=== PATIENT | female | born 1975 | race Asian ===

== ENCOUNTER 2018-01-23 09:27 | Day surgery (SDC) | payer OTHER ==
[2018-01-23] VITALS (11 sets, daily range): BP systolic 118–134; BP diastolic 58–83
[~2018-01-23] VITALS: Ht 157.5 cm; Wt 92.5 kg
[~2018-01-23 09:27] MED LIST: Clindamycin 600mg 50 ML IV ONE; celeBREX 200mg Cap **SURGERY PATIENTS ONLY ORAL ONE; oxyCONTIN 20mg tab ORAL ONE
--- NOTE | 2018-01-23 10:07 | Anethesia Preoperative Eval ---
Anesthesia Pre-op PMH/ROS General Date of Evaluation: January 23, 2018 Anesthesiologist: Mikey ASA Score: ASA 2 Mallampati Score Class I : Soft palate, uvula, fauces, pillars visible Class II: Soft palate, uvula, fauces visible Class III: Soft palate, base of uvula visible Class IV: Only hard plate visible Mallampati Classification: Class II Surgeon: Kodi Diagnosis: Right shouler pain Surgical Procedure: Right shoulder arthroscopy with subacromial decompression Anesthesia History: none Family History: no anesthesia problems Allergies: Coded Allergies: OXACILLIN (Verified Allergy, Severe, 01/23/18) skin rash PENICILLINS (Verified Allergy, Severe, 01/23/18) SKIN RASH Medications: see eMAR Past Medical History Cardiovascular: Denies: HTN, CAD, DE, valve dz, arrhythmia, other Pulmonary: Reports: asthma; Denies: COPD, JEANNA, other Gastrointestinal/Genitourinary: Denies: GERD, CRI, ESRD, other Neurologic/Psychiatric: Reports: other - migraines; Denies: dementia, CVA, depression/anxiety, TIA Endocrine: Denies: DM, hypothyroidism, steroids, other HEENT: Denies: cataract (L), cataract (R), glaucoma, [place] (L), [place] (R), other Hematology/Immune: Reports: anemia - chronic; Denies: DVT, bleeding disorder, other Musculoskeletal/Integumentary: Denies: OA, RA, DJD, DDD, edema, other Other: other - overweight PSxH Narrative: left breast sx, D&C, right ankle sx Anesthesia Pre-op Phys. Exam Physician Exam see chart Constitutional: NAD Cardiovascular: RRR Respiratory: CTA Airway Exam Mallampati Score: Class II MO: full ROM: full Teeth: intact Anesthesia Pre-op A/P Labs see chart Studies Pre-op Studies: EKG - sr Risk Assessment & Plan Assessment: ASA II Plan: GA, right interscalene nerve block Status Change Before Surgery: No Pre-Antibiotics Drug: Clindamycin 600mg Given Within 1 Hr of Incision: DELFINO Norris M.D. January 23, 2018 10:07
[2018-01-23] MEDS ORDERED: METHOCARBAMOL500 MG ORAL (10:09)
[2018-01-23] MEDS ORDERED: IBUPROFEN600 MG ORAL (10:09)
[2018-01-23] MEDS ORDERED: oxyCONTIN 20mg tab ORAL SCH (10:45)
[2018-01-23] MEDS ORDERED: celeBREX 200mg Cap **SURGERY PATIENTS ONLY ORAL SCH (10:45)
[2018-01-23] MEDS ORDERED: Clindamycin 600mg 50 ML IV ONE (10:52)
[2018-01-23] MEDS ORDERED: Zemuron 50mg/5ml Inj IV ONE (10:53)
[2018-01-23] MEDS ORDERED: Lidocaine 1% MPF 10mg/ml 5ml ONE (11:15)
[2018-01-23] MEDS ORDERED: fentaNYL 100 mcg/2 mL IV ONE (11:15)
[2018-01-23] MEDS ORDERED: Midazolam 2mg/2ml Inj ONE (11:15)
[2018-01-23] MEDS ORDERED: Propofol 200mg/20ml IV ONE (11:15)
[2018-01-23] MEDS ORDERED: Ropivacaine 5mg/ml Vial 30ml INJ ONE (11:18)
[2018-01-23] MEDS ORDERED: LR 1000ml 1,000 ML IVLG SCH (11:26)
--- NOTE | 2018-01-23 11:28 | Immediate Post-Op Evaluation ---
Immediate Post-Op Evalulation Immediate Post-Op Evalulation Procedure: Right shoulder arthroscopy, with subacromial decompression Date of Evaluation: January 23, 2018 Time of Evaluation: 13:23 IV Fluids: 600 Blood Products: 0 Estimated Blood Loss: min Urinary Output: 0 Blood Pressure Systolic: 124 Blood Pressure Diastolic: 58 Pulse Rate: 71 Respiratory Rate: 16 O2 Sat by Pulse Oximetry: 98 Temperature (Fahrenheit): 97.8 Pain Score (1-10): 0 Nausea: No Vomiting: No Complications 0 Patient Status: awake, reacts, patent, none Hydration Status: adequate Drug: Clindamycin 600mg Given Within 1 Hr of Incision: Yes Time Given: 12:00 DELFINO NEFF M.D. January 23, 2018 11:28
[2018-01-23] MEDS ORDERED: Midazolam 2mg/2ml Inj IVP PRN (11:30)
[2018-01-23] MEDS ORDERED: Ketorolac 30mg Inj IV PRN (11:30)
[2018-01-23] MEDS ORDERED: LORazepam Inj 2mg/ml 1ml IV PRN (11:30)
[2018-01-23] MEDS ORDERED: DiphenhydrAMINE 50mg/ml Inj IVP PRN (11:30)
[2018-01-23] MEDS ORDERED: fentaNYL 100 mcg/2 mL IV PRN (11:30)
[2018-01-23] MEDS ORDERED: Bupivacaine 0.25% Inj 30ml INJ ONE (11:33)
[2018-01-23] MEDS ORDERED: EPINEPHrine 1mg/1ml Amp ONE (11:33)
[2018-01-23] MEDS ORDERED: Lidocaine 1% 10mg/ml/Epi 0.005mg/ml 30ml vial INJ ONE (11:33)
[2018-01-23] MEDS ORDERED: NS Irrig 4000ml IRRIG ONE (11:40)
--- NOTE | 2018-01-23 12:01 | 48 Hour Post Anesthesia Eval ---
Post Anesthesia Evaluation Procedure: Right shoulder arthroscopy, with subacromial decompression Date of Evaluation: January 23, 2018 Airway: patent Nausea: No Vomiting: No Pain Intensity: 0 Hydration Status: adequate Cardiopulmonary Status: at baseline Mental Status/LOC: patient returned to baseline Post-Anesthesia Complications: 0 Follow-up care needed: ready to discharge DELFINO NEFF M.D. January 23, 2018 12:01
--- NOTE | 2018-01-23 12:05 | Operative Note - PDOC ---
Operative Note Operative Note Pre-op Diagnosis: right shoulder impingement Procedure: see op report Post-op Diagnosis: same as pre-op plus Operative Findings: consistent w/pre-op dx studies Anesthesia: regional Specimen: none Complications: none Condition: stable Estimated Blood Loss: none Implant(s) used?: No Wilber Mariee MD January 23, 2018 12:05
--- NOTE | 2018-01-23 12:05 | Pre-Procedure Note/Attestation ---
Pre-Procedure Note/Attestation Complete Prior to Procedure Planned Procedure: right Procedure Narrative: shoulder arthroscopy, sad Indications for Procedure Pre-Operative Diagnosis: right shoulder impingement Attestation I attest that I discussed the nature of the procedure; its benefits; risks and complications; and alternatives (and the risks and benefits of such alternatives ), prior to the procedure, with the patient (or the patient's legal real estate representative). I attest that, if there was a reasonable possibility of needing a blood transfusion, the patient (or the patient's legal real estate representative) was given the [facility] standardized written summary, pursuant to the [place] Blood Safety Act ([place] Health and Safety Code # 1645, as amended). I attest that I re-evaluated the patient just prior to the surgery and that there has been no change in the patient's H&P, except as documented below: Wilber Mariee MD January 23, 2018 12:05
[2018-01-23] MEDS ORDERED: Tylenol #3 tab (300mg/30mg) ORAL PRN (12:15)
[2018-01-23] MEDS ORDERED: D5 1/2NS 1,000 ML IV SCH (12:15)
[2018-01-23] MEDS ORDERED: Norco 5mg/325mg tab ORAL PRN (12:15)
[2018-01-23] MEDS ORDERED: Albuterol ud Inhalation ONE (14:27)
[2018-01-23] MEDS ORDERED: Albuterol ud Inhalation HHN SCH (14:30)
--- NOTE | 2018-01-23 20:01 | Operative Note - Dictated ---
DATE OF OPERATION: 01/23/2018 PREOPERATIVE DIAGNOSIS: Right shoulder traumatic impingement syndrome/bursitis. POSTOPERATIVE DIAGNOSES: 1. Right shoulder traumatic impingement syndrome/bursitis. 2. Superior labral tear. PROCEDURE: 1. Right shoulder diagnostic arthroscopy. 2. Right shoulder subacromial decompression bursectomy. 3. Debridement of superior labral tear/ SLAP tear. SURGEON: Wilber Mariee M.D. ANESTHESIA: Interscalene with general. INDICATION FOR PROCEDURE: The patient is a pleasant female, who has had progressive right shoulder pain which did not respond to physical therapy and other conservative treatment and elected to undergo right shoulder diagnostic arthroscopy with subacromial decompression and bursectomy. Risks, limitations, expectations, and complications of procedure were discussed in detail. All questions were addressed. DESCRIPTION OF PROCEDURE: After informed consent was obtained, the patient was brought to the operating room and placed supine under interscalene with general anesthesia. The patient was then carefully placed in the beach-chair position. Right shoulder was prepped and draped in sterile manner. Time-out was performed. The skin was incised. Trocar was introduced into the glenohumeral joint. The anterior labrum was noted to have some fraying that extended to the superior labrum. Once the superior labral tear was debrided, the remaining labrum was probed and noted to be intact. Biceps tendon was intact. The undersurface of the rotator cuff was evaluated and noted to be intact. No chondral damage. At this point, the camera was placed in subacromial space. There was significant hypertrophic bursal tissue. This was completely removed and the undersurface of the acromion was identified. Once the undersurface of the acromion was identified, acromioplasty from lateral to medial was performed and completed from posterior to anterior. Once that was done, the bursectomy in the posterior axillary pouch was completed. At this point, the instruments were removed. Portal sites were closed with 3-0 Monocryl sutures. Steri-Strips and sterile dressing were applied. The patient was awoken and taken to recovery room with stable vital signs. ESTIMATED BLOOD LOSS: None. COMPLICATIONS: None. SPECIMENS: None. IMPLANTS: None. Wilber Mariee M.D. DR: Vj JOB#: [id number] CC: MEMO
== END 2018-01-23 16:20 | disposition home or self-care (01) ==
LOC: SUR 09:27
DX: M75.41 Impingement syndrome of right shoulder (principal); S43.401A Unspecified sprain of right shoulder joint, initial encounter; X58.XXXA Exposure to other specified factors, initial encounter; Y92.9 Unspecified place or not applicable; Z88.0 Allergy status to penicillin
CPT/HCPCS: 29823; 81025; J0171; J0690; J2250; J2704; J2795; J3010; J3490; S0077

== ENCOUNTER 2018-11-06 11:00 | Inpatient (IN) | payer OTHER ==
[~2018-11-06] VITALS: Ht 157.5 cm; Wt 93.9 kg
[~2018-11-06 11:00] MED LIST changes: -Clindamycin 600mg 50 ML IV ONE; +IBUPROFEN600 MG ORAL; +METHOCARBAMOL500 MG ORAL; -celeBREX 200mg Cap **SURGERY PATIENTS ONLY ORAL ONE; -oxyCONTIN 20mg tab ORAL ONE
[2018-11-16] MEDS ORDERED: MOBIC7.5 MG ORAL (13:11)
[2018-11-16] MEDS ORDERED: EXCEDRIN MIGRA1 EAC1 PO (13:12)
[2018-11-17] VITALS (17 sets, daily range): BP systolic 118–141; BP diastolic 61–87
--- NOTE | 2018-11-17 06:22 | Anethesia Preoperative Eval ---
Anesthesia Pre-op PMH/ROS General Date of Evaluation: Nov 17, 2018 Time of Evaluation: 07:01 Anesthesiologist: Nickie ASA Score: ASA 2 Mallampati Score Class I : Soft palate, uvula, fauces, pillars visible Class II: Soft palate, uvula, fauces visible Class III: Soft palate, base of uvula visible Class IV: Only hard plate visible Mallampati Classification: Class II Surgeon: Troy Diagnosis: Neck Pain Surgical Procedure: ADR C5-6 Anesthesia History: none Family History: no anesthesia problems Allergies: Coded Allergies: AMOXICILLIN (Verified Allergy, Severe, 11/16/18) skin rash,difficulty breathing LATEX (Verified Allergy, Severe, 11/17/18) SKIN RASH, ITCHING PENICILLINS (Verified Allergy, Severe, 01/23/18) SKIN RASH Medications: see eMAR Patient NPO?: Yes Past Medical History Pulmonary: Reports: asthma Hematology/Immune: Reports: anemia Other: obesity - BMI 39 PSxH Narrative: Rt Ankle , Shoulder SX Anesthesia Pre-op Phys. Exam Physician Exam Last Vital Signs Date Time Temp Pulse Resp B/P (MAP) Pulse Ox O2 Delivery O2 Flow Rate FiO2 11/17/18 06:09 Room Air Constitutional: NAD Neurologic: CN 2-12 intact Cardiovascular: RRR Respiratory: CTA Gastrointestinal: S/NT/ND Airway Exam Mallampati Score: Class II MO: limited ROM: limited Teeth: intact Anesthesia Pre-op A/P Labs Urine Test Test 11/17/18 05:50 Urine HCG, Qualitative Pending Risk Assessment & Plan Assessment: ASA 2 Plan: GA, SED, GlideScope Go Status Change Before Surgery: No Pre-Antibiotics Dru Grams Ancef IV Given Within 1 Hr of Incision: Yes Time Given: 07:16 Gonzalez Fu MD Nov 17, 2018 06:22
[2018-11-17] MEDS ORDERED: Thrombin 5000 units TOPIC ONE (06:29)
[2018-11-17] MEDS ORDERED: Vancomycin 1gm vial IVPB ONE (06:29)
[2018-11-17] MEDS ORDERED: Bacitracin 50000 Units Vial ONE (06:30)
[2018-11-17] MEDS ORDERED: Gelfoam Size TOPIC ONE (06:30)
[2018-11-17] MEDS ORDERED: Zemuron 50mg/5ml Inj IV ONE (06:31)
[2018-11-17] MEDS ORDERED: Dexamethasone 4mg/ml vial ONE (06:53)
[2018-11-17] MEDS ORDERED: Sodium Chloride 10ml vial INJ ONE (06:53)
[2018-11-17] MEDS ORDERED: Lidocaine 1% Plain 30 ml INJ ONE (06:53)
[2018-11-17] MEDS ORDERED: Lidocaine 1% MPF 10mg/ml 5ml ONE (06:53)
[2018-11-17] MEDS ORDERED: fentaNYL 100 mcg/2 mL IV ONE ×2 (06:58→09:24)
[2018-11-17] MEDS ORDERED: NS Irrig 1000ml ONE (07:00)
[2018-11-17] MEDS ORDERED: Sterile Water Irrig 1000ml IRRIG ONE (07:00)
[2018-11-17] MEDS ORDERED: Propofol 1,000mg/ 100ml btl IV ONE (07:00)
[2018-11-17] MEDS ORDERED: LR 1000ml ONE (07:00)
[2018-11-17] MEDS ORDERED: LR 1000ml 1,000 ML IVLG SCH (07:02)
[2018-11-17] MEDS ORDERED: Atropine Sulfate 0.4mg/ml inj IVP PRN (07:15)
[2018-11-17] MEDS ORDERED: LORazepam Inj 2mg/ml 1ml IV PRN (07:15)
[2018-11-17] MEDS ORDERED: fentaNYL 100 mcg/2 mL IV PRN (07:15)
[2018-11-17] MEDS ORDERED: HYDROcodone/Acetamin 7.5/325 tab ORAL PRN ×3 (07:15→07:30)
[2018-11-17] MEDS ORDERED: DiphenhydrAMINE 50mg/ml Inj IVP PRN (07:15)
[2018-11-17] MEDS ORDERED: oxyCODONE HCL/Acetaminophen 5/325mg ORAL PRN (07:15)
[2018-11-17] MEDS ORDERED: Meperidine 50mg/ml Inj(FOR RIGORS ONLY) IVP PRN (07:15)
[2018-11-17] MEDS ORDERED: Acetaminophen (Non formulary) 100 ML IV ONE (07:15)
[2018-11-17] MEDS ORDERED: Ketorolac 30mg Inj IV PRN ×2 (07:15)
[2018-11-17] MEDS ORDERED: Metoclopramide 10mg/2ml Inj IVP PRN ×2 (07:15→07:30)
[2018-11-17] MEDS ORDERED: Hydromorphone 0.5mg/0.5ml inj IVP PRN (07:15)
[2018-11-17] MEDS ORDERED: Midazolam 2mg/2ml Inj IVP PRN (07:15)
[2018-11-17] MEDS ORDERED: Norco 5mg/325mg tab ORAL PRN ×2 (07:15→07:30)
--- NOTE | 2018-11-17 07:18 | Pre-Procedure Note/Attestation ---
Pre-Procedure Note/Attestation Complete Prior to Procedure Planned Procedure: not applicable Procedure Narrative: C56 artificial disc replacement Indications for Procedure Pre-Operative Diagnosis: C56 herniation Attestation I attest that I discussed the nature of the procedure; its benefits; risks and complications; and alternatives (and the risks and benefits of such alternatives ), prior to the procedure, with the patient (or the patient's legal underwriting service representative). I attest that, if there was a reasonable possibility of needing a blood transfusion, the patient (or the patient's legal underwriting service representative) was given the [facility] standardized written summary, pursuant to the [place] Blood Safety Act ([place] Health and Safety Code # 1645, as amended). I attest that I re-evaluated the patient just prior to the surgery and that there has been no change in the patient's H&P, except as documented below: John Simmons MD Nov 17, 2018 07:18
--- NOTE | 2018-11-17 07:20 | Brief Operative Note ---
Immediate Post Operative Note Operative Note Chief Complaint: Neck pain and radiculopathy Pre-op Diagnosis: C56 herniation Procedure: C56 artificial disc replacement Post-op Diagnosis: same as pre-op Findings: consistent w/pre-op dx studies Surgeon: Troy Public Health Director: Kodi Anesthesiologist: Shayan Anesthesia: general Specimen: none Complications: none Condition: stable Fluids: IVF Estimated Blood Loss: minimal Drains: none Implant(s) used?: Yes - C56 prodisc John Simmons MD Nov 17, 2018 07:20
[2018-11-17] MEDS ORDERED: Chloraseptic Spray 20mL Bottle ORAL PRN ×2 (07:30→12:15)
[2018-11-17] MEDS ORDERED: Morphine Sulfate 2mg/ml Inj(IV/IM USE ONLY) IV PRN (07:30)
[2018-11-17] MEDS ORDERED: Naloxone 0.4mg/ml Inj IVP PRN (07:30)
[2018-11-17] MEDS ORDERED: HYDROmorphone 1mg/ml Carpuject IVP PRN (07:30)
[2018-11-17] MEDS ORDERED: Morphine Sulfate 4mg/ml Inj (IV USE ONLY) IV PRN (07:30)
[2018-11-17] MEDS ORDERED: Milk of Magnesia 30ml Ud ORAL PRN (07:30)
[2018-11-17] MEDS ORDERED: Glycopyrrolate 0.2mg/ml 1ml Vial ONE ×4 (07:47→09:01)
--- NOTE | 2018-11-17 08:06 | Immediate Post-Op Evaluation ---
Immediate Post-Op Evalulation Immediate Post-Op Evalulation Procedure: ADR C5-6 Date of Evaluation: Nov 17, 2018 Time of Evaluation: 09:50 IV Fluids: 1000 LR Blood Products: 0 Estimated Blood Loss: 75 Urinary Output: 0 Blood Pressure Systolic: 122 Blood Pressure Diastolic: 74 Pulse Rate: 91 Respiratory Rate: 16 O2 Sat by Pulse Oximetry: 100 Temperature (Fahrenheit): 97.8 Pain Score (1-10): 2 Nausea: No Vomiting: No Complications 0 Patient Status: awake, reacts, patent, extubated, none Hydration Status: adequate Dru Grams Ancef IV Given Within 1 Hr of Incision: Yes Time Given: 07:16 Gonzalez Fu MD Nov 17, 2018 08:06
[2018-11-17] MEDS ORDERED: Neostigmine 1mg/ml 10ml Inj ONE (08:13)
[2018-11-17] MEDS ORDERED: Thrombin 5000 units spray kit TOPIC ONE ×2 (08:31→08:35)
[2018-11-17] MEDS ORDERED: Gelfoam Absorbable 1gm powder pkt TOPIC ONE (10:06)
[2018-11-17] MEDS: Morphine Sulfate 4mg/ml Inj (IV USE ONLY) IV PRN ×2 (12:58→21:22)
[2018-11-17] MEDS: NS w/KCl 20mEq 1,000 ML IV SCH ×2 (13:18→23:49)
--- NOTE | 2018-11-17 15:30 | Operative Note - Dictated ---
DATE OF OPERATION: 11/17/2018 SURGEON: John Simmons MD, Orthopedic Spine Surgeon. FRONT END APPLICATION DEVELOPER SURGEON: Wilber Mariee M.D. ANESTHESIOLOGIST: Gonzalez Fu M.D. PREOPERATIVE DIAGNOSES: 1. Intractable neck pain. 2. Radiculopathy. 3. Herniation, C5-C6. 4. Neural foraminal stenosis C5-C6. 5. Stenosis. POSTOPERATIVE DIAGNOSES: 1. Intractable neck pain. 2. Radiculopathy. 3. Herniation, C5-C6. 4. Neural foraminal stenosis C5-C6. 5. Stenosis. PROCEDURE PERFORMED: 1. Anterior cervical discectomy and artificial disc replacement of C5-C6 using a [employer] C 5 height. 2. Supervision and interpretation of fluoroscopy. 3. Use of intraoperative microscope. 4. Motor evoked potential monitoring. 5. Somatosensory evoked potential monitoring. COMPLICATIONS: None. ANESTHESIA: General. ESTIMATED BLOOD LOSS: Less than 100 mL. INDICATIONS FOR SURGERY: This patient is a 42-year-old female who has a history of diagnoses as listed above. As of result of this, the patient sustained intractable neck pain, radiculopathy, herniation C5-C6, neural foraminal stenosis C5-C6, stenosis We tried a course of conservative management but despite this course there was still a significant component of persistent, recalcitrant neck pain and arm pain. The MRI demonstrated significant neural foraminal compromise secondary to disc herniations at C5-C6. We had a long discussion with Filipinas regarding the risks and benefits of surgery. Our discussion included but was not limited to nonoperative management, chiropractic management, another epidural steroid injection as well definitive management in the form of surgery. We recommended an artificial disc replacement of cervical C5-C6 as definitive management. We reviewed the risks and benefits of surgery with the patient. Our discussion included a comprehensive review of the clinical issues and the nature of the clinical decision. We reviewed the alternatives, including doing nothing. The patient elected to proceed accordingly with an artificial disc replacement of cervical C5-C6 . We had a long discussion regarding the risks, alternatives and benefits of surgery. Our description of the risks included a discussion in person as well as a signed consent which detailed all pertinent risks from the procedure itself. Briefly, our discussion included but was not limited to infection, bleeding, pseudarthrosis, spinal cord injury, neurovascular injury, dural tear, CSF leak, neuropathy, paralysis, permanent weakness/drop foot/drop arm, paresthesias, blindness, palsy and weakness. The patient understood there may be a need for a revision surgery or additional procedures. Approach-related complications including dysphonia, dysphagia, blindness, permanent vocal cord and neural injury, hematoma, swallowing and breathing difficulty. Medical complications were reviewed including liver, kidney, shock, cardiopulmonary failure, anesthesia complications including , swelling, damage to the musculature, larynx/voice injury or loss, esophagus/throat, trachea, blood vessels and muscles/muscular sprain and lungs/pneumothorax during this surgical procedure; injury to deeper structures may be temporary or permanent. After this review of risks, the patient understood these and elected to proceed. A written and verbal consent was given. We discussed the pros and cons of all the alternatives. We discussed the uncertainties associated with the decision. Afterwards I assessed the patient's understanding and explored their preferences. All questions were answered and no guarantees were given. Medical clearance was obtained prior to surgery. INTRAOPERATIVE FINDINGS: A discrete disc herniation which was found posterior to an obvious tear in the posterior longitudinal ligament at C5-C6. This was causing a considerable amount of neural foraminal stenosis with significant encroachment on the neural foramina and spinal cord which was being impinged as a result of this pressure. Upon inspection of the interspace at cervical C5-C6. I noticed a rent in the posterior longitudinal ligament or PLL. Upon inspection of this tear once it was mobilized with Kerrison rongeurs there was a disc fragment and herniation causing encroachment on the neural foramina and spinal cord posterior to the PLL. This was resected as well which caused some noted relief on the underlying neural elements. DESCRIPTION OF PROCEDURE: Under the benefit of general endotracheal anesthesia and with the assistance of the entire operative team, the patient was moved from the [facility] onto the operative table in the supine position. The head was secured and carefully positioned appropriately. Bilateral arms were secured with GelPads and foam and all bony prominences were padded. For the bilateral lower extremities SCD and EMILY hose were placed for DVT prophylaxis. A surgical timeout was called which corroborated our planned procedure of artificial disc replacement of cervical C5 -C6 . Preoperative antibiotics were administered within 30 minutes of the incision for antibiotic prophylaxis. Using lateral fluoroscopic radiography, the operative levels were delineated. Next the wound was prepped and draped with Chlorhexidine and sterile drapes. An incision was based on lateral fluoroscopy and we centered our incision at the C5-C6 interspace and next using a standard Corea-Morel anterior based approach the incision was taken down through the skin and subcutaneous tissues until the vertebral bodies and their corresponding disc spaces were visualized. A needle was placed into the interspace to confirm placement of the operative interspace and we performed the remainder of procedure under microscopic visualization. Next, using a bipolar and Bovie cautery to ensure meticulous hemostasis, the longus colli was mobilized bilaterally and retractors were placed deep to the longus colli bilaterally to address retraction. The family was notified at one hour intervals throughout the procedure to provide for consistent updates. Next we turned our attention to the radical anterior discectomy. This was initially performed at C5-C6 first by using a 15 blade scalpel followed by narrow pituitaries and a Microsect 5-B curette was used to denude the endplate of all cartilaginous tissue. Next using a [employer] AM8 drill bit the vertebral endplates were denuded of all residual cartilage in a eikz-ox-naya and layer by layer fashion, and ultimately the posterior uncinate joints bilaterally and posterior osteophytic lips and margins were carefully denuded until clear visualization of the posterior longitudinal ligament was possible. An endplate preparation was performed in the exact same fashion using an intervertebral child and family counselor, sequential distraction was obtained throughout the disc space. We saw a tear/rent in the PLL and this was carefully mobilized and dissected using a Microsect 1-B curet until we visualized a discrete disc herniation with compression of the spinal cord as well as neural foramina which was right more than left sided. This neural foraminal compression was carefully resected using a Kerrison-1 and Kerrison-2 rongeurs until complete decompression of the spinal cord was visualized and complete decompression of the neural foramina and nerve root therein as well as the axilla and lateral margin of the nerve root was visualized and subsequently completely decompressed. We next turned our attention towards trialing our implant within the disc space. We initially tried size 5 and this Prodisc Cervical spacer fit well in regards to depth and width. This implant was opened and prepared. Next under direct visualization I confirmed excellent fit in respect to the anterior and posterior vertebral bodies, the uncinate joints and in regards to toggle. Once satisfied with this placement on serial AP and lateral fluoroscopy I turned my attention towards cutting our saurabh. These were cut in the bones using a reciprocating drill and afterwards all free fragments of bone were irrigated. Next FloSeal was placed into the interspace, then removed in its entirety and the implant was inserted using fluoroscopic guidance. Next the Synthes Prodisc C size 5 ADR was then carefully advanced and secured into the intervertebral space under direct visualization and with supervision of AP and lateral fluoroscopic views. After a finger sweep we confirmed removal of all sponges. The retractor was removed and we next turned our attention to meticulous hemostasis with FloSeal and bipolar cautery. After the sponge and needle count was again found to be correct with our second count, we next turned our attention to closure. The wound was again copiously irrigated with antibiotic impregnated saline Closure consisted of 4-0 clear nylon for the platysma, and 5-0 clear nylon for the superficial skin. Final skin closure and dressings consisted of Dermabond. Prior to final closure, a final radiograph was obtained which demonstrated the hardware is intact with excellent position throughout. The patient tolerated the procedure well. The patient was carefully extubated after the conclusion of surgery. We discussed the findings of the surgery with the family upon completion of the case. At this point the patient was transferred to the spine floor for further observation. John Simmons M.D. DR: BELLO JOB#: [id number] CC: MEMO
--- NOTE | 2018-11-17 16:37 | Cardiology Progress Note ---
Assessment/Plan Assessment/Plan [id number] dvt ppx IS ambulate pain management home soon Objective Last 24 Hour Vital Signs Date Time Temp Pulse Resp B/P (MAP) Pulse Ox O2 Delivery O2 Flow Rate FiO2 11/17/18 14:15 97.8 73 14 141/61 (87) 97 11/17/18 13:15 97.2 78 16 134/80 (98) 100 11/17/18 12:20 97.2 77 16 130/87 (101) 96 11/17/18 11:40 97.5 72 18 123/73 (90) 98 11/17/18 11:00 97.6 68 16 124/79 100 Nasal Cannula 3 11/17/18 10:45 69 20 129/81 100 Nasal Cannula 3 11/17/18 10:30 70 19 135/75 100 Nasal Cannula 3 11/17/18 10:15 80 16 125/78 100 Nasal Cannula 3 11/17/18 10:00 75 15 118/81 100 Nasal Cannula 3 11/17/18 09:50 79 18 123/75 100 Simple Mask 6 11/17/18 09:45 77 14 131/78 100 Simple Mask 6 11/17/18 09:39 97.8 84 16 122/76 100 Simple Mask 6 11/17/18 09:37 91 16 100 11/17/18 07:57 97.8 89 20 128/71 (90) 97 11/17/18 06:45 97.8 89 20 128/71 (90) 97 11/17/18 06:09 Room Air Laboratory Tests Test 11/17/18 05:50 Urine HCG, Qualitative Negative (NEGATIVE) Kvng Owens MD Nov 17, 2018 16:37
[2018-11-17] MEDS: Vancomycin 1 GM in D5W 275 ML IVPB SCH (17:22)
[2018-11-17] MEDS: Docusate 100mg cap ORAL SCH (17:22)
[2018-11-17] MEDS: Dexamethasone 4mg/ml vial IVP SCH ×2 (17:23→23:49)
--- NOTE | 2018-11-17 21:00 | Consultation ---
DATE OF CONSULTATION: 11/17/2018 CARDIOLOGY CONSULTATION CONSULTING PHYSICIAN: Kvng Owens M.D. REFERRING PHYSICIAN: John Simmons M.D. REASON FOR REFERRAL: Postoperative medical care. HISTORY OF PRESENT ILLNESS: This is a 42-year-old female, who has undergone cervical spine surgery by Dr. Simmons today, will be here overnight. The patient does have some pain at the site of surgery and when she swallows. She has had some nausea and some dizziness. No chest pain. No shortness of breath. No palpitations noted. PAST MEDICAL HISTORY: Positive for history of breast cyst removal, ankle reconstructive surgery in 2011, and right shoulder arthroscopy. Otherwise, she has no other major issues except for pain. Her primary care doctor is . MEDICATIONS: Her medications prior to admission include Mobic on a daily basis. ALLERGIES: She is allergic to amoxicillin, penicillin, and latex drugs. FAMILY HISTORY: Positive for history of diabetes, hypertension, lung disease, kidney stones, urinary tract infection, and heart disease. SOCIAL HISTORY: She uses tobacco 3 or 6 cigarettes per day. No alcohol. No drugs. REVIEW OF SYSTEMS: GASTROINTESTINAL: She did have some nausea, but no vomiting. No bowel movement. GENITOURINARY: She does not have a Vasquez catheter and she has urinated twice. She does not have any discomfort on urination. PULMONARY: Denies any coughing or wheezing. She does mention that she has some sore throat. CONSTITUTIONAL: No fever, chills, or night sweats. NEUROLOGIC: No numbness or tingling sensation in her arms, legs, or face. PHYSICAL EXAMINATION: GENERAL: Shows to be an overweight middle-aged female, in no respiratory distress. Dressing is clean and dry. LUNGS: Appear to be clear to auscultation and percussion. CARDIAC: Regular rate and rhythm. No heaves, thrills, or gallops noted. ABDOMEN: Soft and obese. Positive bowel sounds. EXTREMITIES: There is no edema. Pneumatic compression stockings in place. She is able to move all four extremities without any difficulty. LABORATORY VALUES: None are available postoperatively. All the laboratories from preop were noted. Blood sugar 109. Sodium 139, potassium 3.6, chloride 102, bicarb 29, BUN of 9, creatinine 0.72, and a glucose of 109. Calcium and liver tests are all normal. White count of 15.7, hemoglobin 14, and platelet count of 408,000. Her other tests include INR 1.1, PTT of 27.9, and repeat of white count was 10.2 with a hemoglobin 13 and a platelet count of 368,000. Urine culture was apparently negative in 48 hours. EKG shows normal sinus rhythm, normal QRS axis, and no ST or T-wave abnormalities are noted. ASSESSMENT: 1. Neck pain with radiculopathy. 2. Postoperative pain. 3. Overweight. 4. Tobacco use disorder. PLAN: This patient was seen in cardiac consultation. She has no signs or symptoms of any major acute disease process. She appears to be doing relatively well. She does have some pain and pain is being managed with pain medications. She has been today. DVT prophylaxis with the use of pneumatic compression stockings and incentive monitor was fully discussed with the patient. Neurologically, she appears to be moving all four extremities. She has done well. Hopefully she will be able to be discharged home by tomorrow morning. Dr. Simmons, thank you for allowing me to participate in the care of this patient. Kvng Owens M.D. DR: MATEUS JOB#: [id number] CC:
[2018-11-18] VITALS: BP 108/71
[2018-11-18 04:00] VITALS: BP 113/63
[2018-11-18] MEDS: Dexamethasone 4mg/ml vial IVP SCH ×2 (05:34→12:38)
[2018-11-18] MEDS: Vancomycin 1 GM in D5W 275 ML IVPB SCH (05:34)
[2018-11-18] MEDS: Morphine Sulfate 4mg/ml Inj (IV USE ONLY) IV PRN ×3 (05:44→16:46)
[2018-11-18 08:00] VITALS: BP 131/57
[2018-11-18] MEDS: Docusate 100mg cap ORAL SCH (10:01)
--- NOTE | 2018-11-18 10:48 | 48 Hour Post Anesthesia Eval ---
Post Anesthesia Evaluation Procedure: ADR C5-6 Date of Evaluation: Nov 18, 2018 Time of Evaluation: 10:24 Blood Pressure Systolic: 113 0: 63 Pulse Rate: 67 Respiratory Rate: 17 Temperature (Fahrenheit): 97.9 O2 Sat by Pulse Oximetry: 97 Airway: patent Nausea: No Vomiting: No Pain Intensity: 3 Hydration Status: adequate Cardiopulmonary Status: Stable Mental Status/LOC: patient returned to baseline Follow-up Care/Observations: 0 Post-Anesthesia Complications: 0 Follow-up care needed: N/A Gonzalez Fu MD Nov 18, 2018 10:48
[2018-11-18 12:00] VITALS: BP 125/72
[2018-11-18] MEDS: NS w/KCl 20mEq 1,000 ML IV SCH (12:57)
[2018-11-18 16:00] VITALS: BP 127/77
--- NOTE | 2018-11-18 17:31 | Discharge Summary ---
DATE OF ADMISSION: 11/17/2018 DATE OF DISCHARGE: 11/18/2018 PROCEDURE PERFORMED DURING ADMISSION: Artificial disk replacement at cervical 5-6. REASON FOR ADMISSION: Herniation, cervical 5-6. HOSPITAL COURSE/TREATMENT RENDERED: DISCHARGE PHYSICAL EXAM: 1. Patient was ambulating with and without the assistance of physical therapy. 2. Prior to discharge home incision was clean and dry with minimal swelling. 3. Follows commands. 4. Alert and oriented. 5. Vasquez discontinued, voiding. 6. Incentive spirometer at bedside. 7. IVF hep locked. MOTOR: Demonstrates expected postoperative bulk and tone. Moves biceps, triceps, and deltoid musculature on command. Moves hip flexors, quadriceps, tibialis anterior, EHL, gastrocsoleus musculature on command as well. TREATMENT RENDERED: 1. Daily nursing care. 2. Physical Therapy. 3. Occupational Therapy. 4. Intravenous medications. 5. Oral medications. 6. Daily postoperative examinations by Spine surgery team. CONDITION OF PATIENT ON DISCHARGE: The condition on discharge is stable for discharge to home. DISCHARGE INSTRUCTIONS: Our specific instructions relating to physical activity, medications diet and follow-up care are detailed in our standard operative folder and were given to this patient prior to surgery. We will however summarize these briefly as stated below. Regarding physical activity we would like the patient to limit their flexion, extension and rotation. We also require a limitation on their bending lifting and twisting. All medication has been called in prior to surgery to their pharmacy of choice. They can resume their regular diet once tolerated. We would like them to shower and limit soaking the wound in a tub/Jacuzzi/the ocean for a period of one month or until the incision is completely healed. We will have them follow up in our office in three weeks time for their regularly scheduled appointment. They understand to call our office tomorrow to schedule the time for their three week followup appointment. The patient will notify us should they experience any increase in the severity of pain, redness/swelling/ or drainage from their incision. John Simmons M.D. DR: BELLO JOB#: [id number] CC:
--- NOTE | 2018-11-20 16:58 | Diagnostic Imaging Report ---
INDICATION: Pain, intraoperative TECHNIQUE: Intraoperative imaging Fluoroscopy time: 39.6 seconds Total dose: [id number] mGym2 Total number of images: 4 COMPARISON: None FINDINGS: Intraoperative images demonstrate a surgical tool projected anterior to the C5-6 disc. Subsequent images demonstrate placement of a disc prosthesis at C5-6. IMPRESSION: Intraoperative imaging, as described
== END 2018-11-18 17:33 | disposition home or self-care (01) | DRG 518 ==
LOC: SDSOVERFLO 11-17 05:31 → 3E 11-17 11:41
PROC: 0RT30ZZ Resection of Cervical Vertebral Disc, Open Approach (ICD-10-PCS; principal; 2018-11-17 07:00)
PROC: 0RR30JZ Replacement of Cervical Vertebral Disc with Synthetic Substitute, Open Approach (ICD-10-PCS; principal; 2018-11-17 07:00)
DX: M50.122 Cervical disc disorder at C5-C6 level with radiculopathy (principal); M48.02 Spinal stenosis, cervical region; F17.200 Nicotine dependence, unspecified, uncomplicated; E66.9 Obesity, unspecified; Z68.37 Body mass index [BMI] 37.0-37.9, adult; G89.18 Other acute postprocedural pain
CPT/HCPCS: 72040; 76000; 81025; 87081; 94003; 94150; J2405; J2710